=== PATIENT | female | born 1960 | race Caucasian/White ===

== ENCOUNTER → 2016-10-02 | Outpatient (CLI) | payer OTHER ==
[~2016-10-02] MED LIST: ACETAMINOPHEN PO; ARIMIDEX1 MG PO; CEPHALEXIN500 M1 PO; HYDROCODON-ACE1 EAC9 PO; MIRENA IY; PHENERGAN25 M1 PO; ROXICODONE5 MG PO; TOPROL XL PO
--- NOTE | ~2016-10-02 | XA80 ---
[facility] A Service of [facility] & [facility] RADIOLOGY TEXT RESULTS PATIENT: GEOVANNY FISHMAN LOCATION: CIVR : 58 UNIT #: [id number] AGE: [address]: Bobby Golden MD SEX: F ORDER DR: [id number] [facility] [address] [place], [place] [address] [id number] O MR#: [id number] Acc #: [id number] NAME: GEOVANNY FISHMAN : 1960 SEX: F STUDY DATE/TIME: 10/02/2016 8:19 UNIT: CIVR ROOM: STUDY DESCRIPTION: XA CVC Remove Tunneled Cath W Attending Physician: Bobby Golden M.D. Ordering Physician: Bobby Golden M.D. Primary Care Physician: Cheryl Dallas M.D. MEDICAL IMAGING REPORT This report is preliminary unless electronic signature is present EXAM Chest port removal. INDICATIONS 56-year female done with treatment and no longer needs chest port. Fluoro time 0.1 minutes. Reference air kerma 1 mGy. MEDICATIONS IV Versed and Fentanyl utilized for conscious sedation. Conscious sedation time was monitored by appropriately credentialed radiology nursing staff. Risks, benefits and alternatives of the procedure are discussed with the patient and informed consent was obtained. In the procedure room a time-out was performed confirming correct patient and procedure. All elements of maximum sterile-barrier technique utilized according to guidelines appropriate for the procedure. TECHNIQUE/FINDINGS [employer] images obtained. Skin overlying the chest port was prepped and draped in the usual sterile fashion. 1% lidocaine utilized to anesthetize the skin and underlying subcutaneous tissues. Next, using full standard sterile barrier technique including sterile caps, gowns, gloves, masks, drapes, 2% Chlorhexidine for antisepsis and hand hygiene an incision was made through the old scar and was removed in its entirety. The incision was closed using 3-0 Vicryl and Dermabond. Spot images taken confirming the chest port was removed in its entirety. The patient tolerated procedure well without immediate complications. IMPRESSION Removal of left-sided chest port as described. Dictated by... [facility]. [facility] A Service of [facility] & [facility] RADIOLOGY TEXT RESULTS PATIENT: GEOVANNY FISHMAN LOCATION: [facility] #: [id number] : 58 UNIT #: [id number] AGE: [address]: Bobby Golden MD SEX: F ORDER DR: Ayden Garcia M.D. THIS IS AN ELECTRONICALLY VERIFIED REPORT Ayden Garcia M.D. at 10/04/2016 7:33 AM Osmar TD: 10/03/2016 06:22 JOB #: [id number] MEDICAL IMAGING REPORT COPY
[2016-10-02 06:24] LABS: HEMATOCRIT 37.7 % (35.0-45.0); HEMOGLOBIN 12.8 gm/dL (12.0-16.0); MEAN CELL VOLUME 93.3 FL (83-96); MEAN CORPUSCULAR HEMOGLOBIN 31.6 PG (28-34); MEAN CORPUSCULAR HGB CONC 33.9 g/dL (30-36); MEAN PLATELET VOLUME 8.2 FL (6.5-11.5); RED BLOOD COUNT 4.05 X10e (3.90-5.30); RED CELL DISTRIBUTION WIDTH 13.8 % (11.0-15.5); WHITE BLOOD COUNT 5.1 X10e3 (4.0-10.5)
[2016-10-02 06:50] LABS: PARTIAL THROMBOPLASTIN TIME 34.5 SECONDS (23.5-31.3)
== END | disposition home or self-care (01) ==
LOC: CIVR 05:53
PROVIDERS: Internal Medicine Hematology
PROC: 0JPT3XZ Removal of Tunneled Vascular Access Device from Trunk Subcutaneous Tissue and Fascia, Percutaneous Approach (ICD-10-PCS; principal; 2016-10-02)
DX: Z45.2 Encounter for adjustment and management of vascular access device (principal); C50.911 Malignant neoplasm of unspecified site of right female breast; Z17.0 Estrogen receptor positive status [ER+]; Z90.11 Acquired absence of right breast and nipple
CPT/HCPCS: 36415; 77001; 85027; 85610; 85730; J2250; J3010

== ENCOUNTER → 2017-01-24 | Outpatient (CLI) | payer OTHER ==
--- NOTE | ~2017-01-24 | MY24 ---
[facility] A Service [facility] RADIOLOGY TEXT RESULTS PATIENT: GEOVANNY FISHMAN LOCATION: [facility] : 58 UNIT #: [id number] AGE: [address]: Juan Pablo Hayden MD SEX: F ORDER DR: [id number] [facility] [address]. [place], [place] [address] [id number] O MR#: [id number] Acc #: [id number] NAME: GEOVANNY FISHMAN : 1960 SEX: F STUDY DATE/TIME: 01/24/2017 14:57 UNIT: [facility] ROOM: STUDY DESCRIPTION: [facility] W/ CAD UNI Attending Physician: Juan Pablo Hayden M.D. Referring Physician: Bobby Golden M.D. Ordering Physician: Juan Pablo Hayden M.D. Primary Care Physician: Cheryl Dallas M.D. MEDICAL IMAGING REPORT This report is preliminary unless electronic signature is present EXAM Left diagnostic mammogram 01/24 INDICATIONS History of right mastectomy for breast cancer in 2014. No current complaints. FINDINGS Digital CC, MLO, and ML views of the left breast were obtained. Study is reviewed with an FDA-approved CAD device. COMPARISON STUDIES Comparison is was made with 01/18/2016 and 10/19/2014. Breast parenchyma demonstrates scattered fibroglandular densities. No new masses or suspicious microcalcifications are seen. Findings were discussed with the patient at the time of her examination today. IMPRESSION Negative left mammogram. Followup in 1 year recommended. Patients over the age of 40 are entered into a reminder system with target due date for the next mammogram. A result letter will also be sent to the patient. BIRADS: 1 - Negative Dictated by... Aleksandr Rowe Jr., M.D. THIS IS AN ELECTRONICALLY VERIFIED REPORT Aleksandr Rowe Jr., M.D. at 02/22/2017 4:33 PM JORDANA/amisha [facility] A Service [facility] RADIOLOGY TEXT RESULTS PATIENT: GEOVANNY FISHMAN LOCATION: [facility] : 58 UNIT #: [id number] AGE: [address]: Juan Pablo Hayden MD SEX: F ORDER DR: TD: 01/24/2017 16:42 JOB #: [id number] MEDICAL IMAGING REPORT Page 1 of 1 COPY
== END | disposition home or self-care (01) ==
LOC: CMAM 14:39
DX: Z08 Encounter for follow-up examination after completed treatment for malignant neoplasm (principal); Z85.3 Personal history of malignant neoplasm of breast; Z90.11 Acquired absence of right breast and nipple
CPT/HCPCS: G0206

== ENCOUNTER → 2017-03-04 | Outpatient (CLI) | payer OTHER ==
--- NOTE | ~2017-03-04 | CT55 ---
[facility] A Service of [facility] RADIOLOGY TEXT RESULTS PATIENT: GEOVANNY FISHMAN LOCATION: [facility] : 58 UNIT #: [id number] AGE: [address]: Bobby Golden MD SEX: F ORDER DR: [id number] [facility] [address] [place], [place] [address] [id number] O MR#: [id number] Acc #: [id number] NAME: GEOVANNY FISHMAN : 1960 SEX: F STUDY DATE/TIME: 03/04/2017 16:21 UNIT: [facility] ROOM: STUDY DESCRIPTION: CT Chest W Con Attending Physician: Bobby Golden M.D. Referring Physician: Bobby Golden M.D. Ordering Physician: Bobby Golden M.D. Primary Care Physician: Cheryl Dallas M.D. MEDICAL IMAGING REPORT This report is preliminary unless electronic signature is present EXAM CT chest with contrast. INDICATIONS Restaging breast cancer. Observation for metastatic disease. PROCEDURE Contrast-enhanced CT of the chest. This CT exam was performed with one or more of the following radiation dose reduction techniques: automatic exposure control, adjustment of mA and/or kV according to patient size, and iterative reconstruction. COMPARISON 02/21/2016 FINDINGS Lungs are clear. No pulmonary nodules. Previous right mastectomy. No adenopathy. No acute findings in the included upper abdomen. No aggressive appearing bone lesion. IMPRESSION No acute findings in the chest. No evidence for metastatic disease. Dictated by... Jose R Dasilva M.D. THIS IS AN ELECTRONICALLY VERIFIED REPORT Jose R Dasilva M.D. at 03/11/2017 8:52 AM EMILY/julio TD: 03/05/2017 17:40 [facility] A Service [facility] RADIOLOGY TEXT RESULTS PATIENT: GEOVANNY FISHMAN LOCATION: [facility] : 58 UNIT #: [id number] AGE: [address]: Bobby Golden MD SEX: F ORDER DR: JOB #: [id number] MEDICAL IMAGING REPORT Page 1 of 1 COPY
--- NOTE | ~2017-03-04 | CT2 ---
[facility] A Service of [facility] RADIOLOGY TEXT RESULTS PATIENT: GEOVANNY FISHMAN LOCATION: [facility] : 58 UNIT #: [id number] AGE: [address]: Bobby Golden MD SEX: F ORDER DR: [id number] [facility] [address] [place], [place] [address] [id number] O MR#: [id number] Acc #: [id number] NAME: GEOVANNY FISHMAN. : 1960 SEX: F STUDY DATE/TIME: 03/04/2017 15:42 UNIT: [facility] ROOM: STUDY DESCRIPTION: CT Abd and Pelv W Cont Attending Physician: Bobby Golden M.D. Referring Physician: Bobby Golden M.D. Ordering Physician: Bobby Golden M.D. Primary Care Physician: Cheryl Dallas M.D. MEDICAL IMAGING REPORT This report is preliminary unless electronic signature is present EXAM CT abdomen and pelvis with contrast INDICATION Breast cancer restaging. Observation for metastatic disease. PROCEDURE Contrast-enhanced CT of the abdomen and pelvis. This CT exam was performed with one or more of the following radiation dose reduction techniques: Automatic exposure control, adjustment of mA and/or kV according to patient size, and iterative reconstruction. COMPARISON 02/21/2016 FINDINGS Refer to the separately dictated chest CT for thoracic findings. ABDOMEN WITH CONTRAST: The liver, spleen, kidneys, adrenal gland, pancreas, and gallbladder are unremarkable. Bowel loops are nondilated. Stable appearance of the appendix. No abdominal lymphadenopathy. PELVIS WITH CONTRAST: Fibroids in the uterus are unchanged. No new pelvic mass or adenopathy. No aggressive appearing bone lesion. IMPRESSION No evidence for metastatic disease in the abdomen or pelvis. Other incidental findings detailed above not significantly changed from prior. [facility] A Service of [facility] & [facility] RADIOLOGY TEXT RESULTS PATIENT: GEOVANNY FISHMAN LOCATION: [facility] : 58 UNIT #: [id number] AGE: [address]: Bobby Golden MD SEX: F ORDER DR: Dictated by... Jose R Dasilva M.D. THIS IS AN ELECTRONICALLY VERIFIED REPORT Jose R Dasilva M.D. at 03/11/2017 8:52 AM MONICAD/nahid TD: 03/05/2017 13:31 JOB #: [id number] MEDICAL IMAGING REPORT Page 1 of 1 COPY
[2017-03-04 21:31] LABS: POC - CREATININE 0.81 mg/dL (0.44-1.03); POC - GFR >60.0 mL/min (>60)
== END | disposition home or self-care (01) ==
LOC: CCAT 15:33
PROVIDERS: Internal Medicine Hematology
DX: C50.911 Malignant neoplasm of unspecified site of right female breast (principal)
CPT/HCPCS: 71260; 74177; 82565; Q9967

== ENCOUNTER → 2017-03-05 | Outpatient (CLI) | payer OTHER ==
--- NOTE | ~2017-03-05 | BD1 ---
[facility] A Service of [facility] & [facility] RADIOLOGY TEXT RESULTS PATIENT: GEOVANNY FISHMAN LOCATION: [facility] : 58 UNIT #: [id number] AGE: [address]: Bobby Golden MD SEX: F ORDER DR: [id number] [facility] [address] [place], [place] [address] [id number] O MR#: [id number] Acc #: [id number] NAME: GEOVANNY FISHMAN : 1960 SEX: F STUDY DATE/TIME: 03/05/2017 15:50 UNIT: [facility] ROOM: STUDY DESCRIPTION: BD Dexa Bone Dens 1+ Site Attending Physician: Bobby Golden M.D. Ordering Physician: Bobby Golden M.D. Primary Care Physician: Primary Care Physician No MEDICAL IMAGING REPORT This report is preliminary unless electronic signature is present EXAM DXA scan, 03/05/2017 HISTORY Status post menopause with no hormone replacement therapy. Osteopenia. Breast carcinoma, radiation therapy and chemotherapy. Hypertension with blood pressure medication. FINDINGS Bone mineral density in the lumbar spine from L1-L4 is 0.929 g/cm2, which is 1.1 standard deviations below the mean when compared to the young adult reference population, which is characteristic of osteopenia. This is 0.2 standard deviations above the mean when compared to the age-match population. Compared with 10/25/2015, there has been a decrease in bone mineral density in the lumbar spine of 5.5%. Bone mineral density in the left femoral neck was 0.757 g/cm2, which is 0.8 standard deviations below the mean when compared to the young adult reference population, which is within the range of normal. This is 0.3 standard deviations above the mean when compared to the age-match population. Compared with 10/25/2015, there has been an increase in bone mineral density in the left hip of 2.1%. IMPRESSION Bone mineral density in the lumbar spine characteristic of osteopenia and within the left hip within the range of normal. Compared with 10/25/2015, there has been a decrease in bone mineral density in the lumbar spine and the left hip. Dictated by... Elvin Interiano M.D. THIS IS AN ELECTRONICALLY VERIFIED REPORT Elvin Interiano M.D. at 03/06/2017 7:28 AM [facility] A Service of [facility] & [facility] RADIOLOGY TEXT RESULTS PATIENT: GEOVANNY FISHMAN LOCATION: [facility] #: [id number] : 58 UNIT #: [id number] AGE: [address]: Bobby Golden MD SEX: F ORDER DR: PHYLLIS/henry TD: 03/05/2017 21:35 JOB #: [id number] MEDICAL IMAGING REPORT Page 1 of 1 COPY
== END | disposition home or self-care (01) ==
LOC: CWCC 15:38
DX: Z13.820 Encounter for screening for osteoporosis (principal); C50.911 Malignant neoplasm of unspecified site of right female breast; M85.88 Other specified disorders of bone density and structure, other site
CPT/HCPCS: 77080